=== PATIENT | male | born 1990 | race Two or more races ===

== ENCOUNTER 2021-08-23 17:06 | Emergency (ER) | payer OTHER ==
[~2021-08-23] VITALS: Ht 177.8 cm; Wt 104.5 kg
[2021-08-23 19:00] VITALS: BP 143/70
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
== END 2021-08-23 20:26 | disposition home or self-care (01) ==
LOC: ER 17:06
DX: S09.90XA Unspecified injury of head, initial encounter (principal); V49.69XA Unspecified car occupant injured in collision with other motor vehicles in traffic accident, initial encounter; Y93.89 Activity, other specified; Y92.89 Other specified places as the place of occurrence of the external cause; Y99.8 Other external cause status
CPT/HCPCS: 70450; 72125; 99284-25